=== PATIENT | male | born 1970 | race African-American/Black ===

== ENCOUNTER 2020-10-31 12:21 | Inpatient (IN) | payer MEDICARE ==
[~2020-10-31] VITALS: Ht 170.2 cm; Wt 68.0 kg
[2020-10-31 12:22] VITALS: BP 136/90
--- NOTE | 2020-10-31 13:32 | NUR ---
Called lab for blood draw due to IV not drawing back
[2020-10-31 14:26] LABS: ABSOLUTE NEUTROPHILS 11.2 thou/uL (1.4-8.2); BASOPHILS 0.3 % (0.0-2.0); HEMATOCRIT 56.1 % (42.0-52.0); HEMOGLOBIN 18.2 gm/dL (14.0-18.0); LYMPHOCYTES 6.4 % (24.0-44.0); MCH 30.3 pg (26.0-34.0); MCHC 32.4 g/dL (28.0-37.0); MCV 93.4 fL (80.0-100.0); MONOCYTES 11.2 % (1.0-8.0); POLYS 82.1 % (36.0-66.0); RBC 6.01 mil/uL (4.50-6.00); RDW 14.3 % (10.5-14.5); WBC 13.7 thou/uL (4.0-11.0)
[2020-10-31 14:35] LABS: CALCIUM 9.7 mg/dL (8.5-10.1); POTASSIUM 4.4 mmol/L (3.5-5.1)
[2020-10-31 14:36] LABS: URINE BILIRUBIN NEGATIVE (Negative); URINE BLOOD 3+ (Negative); URINE CLARITY CLEAR; URINE COLOR YELLOW; URINE GLUCOSE-RANDOM* NEGATIVE (Negative); URINE KETONES NEGATIVE (Negative); URINE NITRITE-REFLEX NEGATIVE (Negative); URINE PROTEIN (DIPSTICK) 1+ (Negative); URINE SPECIFIC GRAVITY 1.025 (1.005-1.035); URINE UROBILINOGEN 0.2 E.U./dl (0.2-1.0)
[2020-10-31 14:38] LABS: URINE LEUKOCYTES-REFLEX 1+ (Negative)
--- NOTE | 2020-10-31 14:42 | EKG ---
[place] [address] [facility] [place] [address] ELECTROCARDIOGRAM REPORT Name: RUDI COFFMAN Room #: REG OMID Townsend#: [id number] Admission: 10/31/20 Attend Phys: Discharge: Date of : 66 Report #: [id number] [facility] ED Test Date: 2020-10-31 Test Time: 14:15:58 Pat Name: RUDI COFFMAN Department: Room: Gender: M Room Service Bellhop: keren : 1970 Requested By: Messi Lopez Order Number: [id number] MD: Ajay Nelson Measurements Intervals [place] Rate: 115 P: 91 LA: 103 QRS: 62 QRSD: 77 T: -17 QT: 392 QTc: 543 Interpretive Statements Sinus tachycardia Biatrial enlargement Borderline low voltage, extremity leads Abnormal R-wave progression, late transition Prolonged QT interval No previous ECG available for comparison Electronically Signed On 10-31-2020 14:42:42 CDT by Ajay Nelson [email or web address] <ELECTRONICALLY SIGNED> By: Ajay Nelson MD, [facility] 10/31/20 1442 1415 1415 Ajay Nelson MD, FACC /EPI
[2020-10-31 14:43] LABS: ALBUMIN 3.4 g/dL (3.4-5.0); TOTAL BILIRUBIN 0.7 mg/dL (0.2-1.0); TOTAL PROTEIN 8.7 g/dL (6.4-8.2)
[2020-10-31 14:48] LABS: HYALINE CASTS 4-10 Moderate /LPF (None Seen); MUCUS 4-6 Moderate strn/LPF (None Seen); SQUAMOUS 0-3 Few /LPF (0-3)
[2020-10-31 14:50] LABS: CRYSTALS None Seen /LPF (None Seen); URINE RBC 3-10 Few /HPF (NONE SEEN); URINE WBC-REFLEX >25 Many /HPF (0-5); WBC CLUMPS Few (None Seen)
[2020-10-31 15:07] LABS: PLATELET COUNT 141 thou/uL (150-400)
--- NOTE | 2020-10-31 17:30 | NUR ---
50-year-old male past medical history of cerebral palsy presented to the ED for evaluation of multiple complaints including an episode of nausea and vomiting approximately 1 week ago, and since that time has been unable to have a bowel movement. Upon further evaluation found to be dehydrated with a UTI. Patient lists his step father Marcello Hampton where he resides at [phone] as his next of kin. CM will follow for discharge needs upon medical evaluation and plan of care has been established.
[2020-10-31 18:30] VITALS: BP 140/82
[2020-10-31 18:53] VITALS: BP 124/85
--- NOTE | 2020-11-01 04:26 | NUR ---
PATIENT ADMITTED FOR AMS, ABD PAIN AND CONSTIPATION AND POSSIBLE IMPACTION. PATIENT AOX4. PATIENT IS NOT ABLE TO EXPRESS NEEDS.PATIENT ENCOURAGED FLUIDS. PATIENT NEED ASSISTANCE X2 WITH ADL, BED MOBILITY, TRANSFER AND TOILETING. FALL PRECAUTION IN PLACE. PATIENT IN BED ASLEEP AT THIS TIME BREATHING REGULAR AND UNLABOURED.
[2020-11-01 05:36] LABS: MCH 30.3 pg (26.0-34.0); MCHC 32.1 g/dL (28.0-37.0); MCV 94.5 fL (80.0-100.0); RBC 4.97 mil/uL (4.50-6.00); RDW 14.1 % (10.5-14.5); WBC 10.8 thou/uL (4.0-11.0)
[2020-11-01 05:40] LABS: HEMOGLOBIN 15.1 gm/dL (14.0-18.0)
[2020-11-01 05:56] LABS: ALBUMIN 2.6 g/dL (3.4-5.0); CALCIUM 8.3 mg/dL (8.5-10.1); CREATININE 1.5 mg/dL (0.7-1.3); MAGNESIUM 2.9 mg/dL (1.8-2.4); POTASSIUM 4.4 mmol/L (3.5-5.1); TOTAL BILIRUBIN 0.7 mg/dL (0.2-1.0)
--- NOTE | 2020-11-01 13:43 | NUR ---
PT ADMITTED RELATED TO UTI AND DEHYDRATION. CM MET WITH PT AT BEDSIDE THIS DAY. PT APPEARED TO BE A&OX4. PT SPEAKS VERY SLOWLY. PT HAS CEREBRAL PALSY; INFORMATION GATHERED FROM PT AND CONFIRMED SOME DETAILS THROUGH CHART REVIEW. PT REPORTS LIVING IN A 2-STORY HOUSE WITH HIS FATHER/BROTHER. REPORTS CHAIRLIFT IS BROKEN, SO HAS BEEN SCOOTING UP STAIRS USING BUE, BEDROOM IS UPSTAIRS. PT STATES INDPT WITH TRANSFERS TO W/C. STATES INDPT W/ DRESSING, AND ABLE TO COMPLETE SPONGE BATH INDEPENDENTLY. FEEDS SELF INDEPENDENTLY, WITH MEAL PROV BY FAMILY. PT'S FAMILY COMPLETES HOME MAKING RESPONSIBILITIES. PT REPORTS NO ELECTRIC W/C, MANUAL SELF-PROPELLING W/C. STATES WAS DOING ALL OF THIS PREVIOUS TO "GETTING SICK" AND THROWING UP. UNSURE OF DATES EXACTLY WHEN PT LAST COMPLETING. CM CALLED PT'S STEP FATHER PAULINA HERNANDEZ AND LEFT VM.
--- NOTE | 2020-11-01 14:28 | NUR ---
Pt. is AXOX3. Alert has expressive aphasia along with CP. IV in right FA running NS at 100/hr. Skin is intact remains on room air. Negative for covid. Pt has blood in his urine. Waiting for father in law to come in to sign consent forms. Pt is a 1-2 person assist. No BM today. Bed in low position fall precautions in place. Call light is within reach. Will monitor until end of shift.
[2020-11-01 16:35] VITALS: BP 122/74
[2020-11-01 21:20] VITALS: BP 130/63
--- NOTE | 2020-11-02 03:33 | NUR ---
PT IS A/O X3 WITH SOME FOREGETFULLNESS. ROOM AIR. VSS AFEBRILE. CONTINUES ON ASPIRATION RISK PRECAUTIONS WITH THICKENED LIQUIDS, AND PUREED DIET. MEDICATIONS GIVEN PER MAR. DENIES C/O PAIN OR DISCOMFORT. IN ROOM NEAR NURSES STATION WITH FREQUENT CHECKS. REQUESTS FOR SNACKS OFTEN. IS PLEASANT AND COOPERATIVE. USES URINAL WITH ASSISTANCE AT THE BEDSIDE. IS INCONTINENT AT TIEMS. NO BM THIS SHIFT. FALL PRECAUTIONS IN PLACE, CALL LIGHT IS WITHIN REACH
[2020-11-02 07:26] VITALS: BP 105/64
--- NOTE | 2020-11-02 15:58 | NUR ---
Called father to get ID to confirm true name of the pt, spoke to a borther who was coming in from out of town to visit. Brother came in with pts certificate, made a copy. True name is Alea Leos. ST,OT,PT eval on going d/t complaints of pain as reported by nursing staff. Pt is alert x2. on going IV abx. Will follow for DC needs.
[2020-11-02 16:41] VITALS: BP 124/80
--- NOTE | 2020-11-02 17:22 | NUR ---
PT IS A&O*2, FORGERTFULLNESS, ROOM AIR, PAIN REPORT WHILE SWALLOWING. PT IS ON PUREED DIET WITH NECTAR THICK. SPEECHY EVALUATION REQUEST TODAY AND NO FUTHER GI CONSULT NEEEDED AT THIS TIME. NOTIFIED. PT FAMILY CONCERNS ABOUT CONSTIPATION AND DM FAMILY HISTORY. ORDERED COLACE BID AND SUPPOTITORY PRN DAILY, HA1C LAB CHECK PER FAMILY REQUEST. PT WORKED WITH OT. IV ABX GIVEN PER ORDER. SINUS TACHY SHOWING ON MONITOR HR BETWEEN 90-100. WILL KEEP MONITOR PATINET'S SAFETY.
[2020-11-02 21:45] VITALS: BP 122/66
[2020-11-02 23:39] VITALS: BP 122/66
--- NOTE | 2020-11-03 02:42 | NUR ---
PT CARE ASSUMED AT 1900 WITH PT IN BED WATCHING TV AND HAVING SNACK.PT IS A/O X2.PT IS UP WITH X2 ASSIST.PT IS ON PUREED DIET AND NECTAR THICKEN LIQUID AND FEEDS SELF.PT IS INCONTINENT.WILL CONTINUE TO MONITOR
[2020-11-03 07:15] VITALS: BP 95/64
[2020-11-03 08:16] LABS: ABSOLUTE NEUTROPHILS 6.8 thou/uL (1.4-8.2); BASOPHILS 1.3 % (0.0-2.0); EOSINOPHILS 1.8 % (0.0-3.0); HEMATOCRIT 40.2 % (42.0-52.0); LYMPHOCYTES 14.8 % (24.0-44.0); MCH 30.4 pg (26.0-34.0); MCHC 32.2 g/dL (28.0-37.0); MCV 94.6 fL (80.0-100.0); MONOCYTES 10.4 % (1.0-8.0); PLATELET COUNT 145 thou/uL (150-400); POLYS 71.7 % (36.0-66.0); RBC 4.25 mil/uL (4.50-6.00); WBC 9.5 thou/uL (4.0-11.0)
[2020-11-03 08:29] LABS: ALBUMIN 2.2 g/dL (3.4-5.0); CALCIUM 7.9 mg/dL (8.5-10.1); MAGNESIUM 2.3 mg/dL (1.8-2.4); POTASSIUM 4.4 mmol/L (3.5-5.1); TOTAL BILIRUBIN 0.3 mg/dL (0.2-1.0); TOTAL PROTEIN 5.7 g/dL (6.4-8.2)
[2020-11-03 08:37] LABS: HEMOGLOBIN 12.9 gm/dL (14.0-18.0)
--- NOTE | 2020-11-03 12:17 | NUR ---
FAXED REFERRAL AND NEGATIVE COVID RESULT (10/31/20) TO [facility]. WILL CONFIRM WITH TUNDE/LIAISON THAT THEY RECEIVED AND AVAILABILITY. [facility] P [phone]; FAX [phone]; M [phone]
--- NOTE | 2020-11-03 13:59 | NUR ---
Spoke with father of the pt Marcello Hampton [phone] pt has not had home health in the past and is open now if needed. PCP is Dr. Erin Molina [phone], [facility] has accepted his case. informed, awaiting dc.
[2020-11-03] MEDS ORDERED: PROTONIX 20 MG20 MG PO (14:14)
[2020-11-03] MEDS ORDERED: CEPHALEXIN500 MG PO (14:15)
[2020-11-03] MEDS ORDERED: ENSURE CLEAR PO (14:22)
[2020-11-03] MEDS ORDERED: SUPER THERAVIT1 EACH PO (14:22)
[2020-11-03 14:38] VITALS: BP 102/60
[2020-11-03 15:04] VITALS: BP 102/60
--- NOTE | 2020-11-03 16:39 | NUR ---
ASSUMED CARE OF PATIENT AT SHIFT CHANGE. ASSESSMENT CHARTED. MEDICATIONS ADMINISTERED PER EMAR. VITAKS REMAIN STABLE. PATIENT IS A&OX3 W SLURRED SPEECH/STUTTERING RELATED TO CP. PATIENT DENIES PAIN THIS SHIFT. PATIENT CALLS OUT WHEN NEEDING TO GO TO BATHROOM; NOT IMPULSIVE AND COMPLIANT WITH FALL PRECAUTIONS. PATIENT WAS MEDICALLY CLEARED TO DISCHARGE HOME THIS DAY. PATIENT CAREGIVER WAS UPDATED ANDD WILL BE CALLED IN REGARDS TO DISCHARGE INSTRUCTIONS. PATIENT VOICED NO FURTHER NEEDS. WILL CONTINUE TO MONITOR UNTIL DISHCHARGE
[2020-11-04 01:06] LABS: GLYCOHEMOGLOBIN (HGB A1C) 5.7 % (4.8-5.6)
--- NOTE | 2020-11-04 14:52 | NUR ---
NUMBER CM PROVIDED WAS [employer]; NO FAMILY MEMBER OF PATIENT WORKS THERE. CALLED NUMBER ON CHART X3; UNABLE TO LEAVE VOICEMAIL, CONTINUOUS RINGING. LEFT DISCHARGE INFO IN FOLDER SENT WITH PATIENT AND INFORMED TRANSPRT
== END 2020-11-03 17:12 | disposition home health service (06) | DRG 871 ==
LOC: ER 12:21 → 4W 16:37 → EROBS 16:37 → 4W 19:37
PROVIDERS: Emergency Medicine; Internal Medicine; Student in an Organized Health Care Education/Training Program; ADMIT Internal Medicine; ATTEND Internal Medicine
DX: A41.9 Sepsis, unspecified organism (principal); N17.0 Acute kidney failure with tubular necrosis; G92 Toxic encephalopathy; E43 Unspecified severe protein-calorie malnutrition; N39.0 Urinary tract infection, site not specified; E86.0 Dehydration; N20.0 Calculus of kidney; G80.9 Cerebral palsy, unspecified; Z20.822 Contact with and (suspected) exposure to COVID-19; D75.1 Secondary polycythemia; D69.6 Thrombocytopenia, unspecified; Z68.23 Body mass index [BMI] 23.0-23.9, adult; Z79.899 Other long term (current) drug therapy
CPT/HCPCS: 10045

== ENCOUNTER 2020-11-04 14:31 | Inpatient (IN) | payer MEDICARE ==
[~2020-11-04] VITALS: Ht 170.2 cm; Wt 68.0 kg
[~2020-11-04 14:31] MED LIST: CEPHALEXIN500 MG PO; ENSURE CLEAR PO; PROTONIX 20 MG20 MG PO; SUPER THERAVIT1 EACH PO
[2020-11-04 14:34] VITALS: BP 109/66
[2020-11-04 15:52] LABS: ABSOLUTE NEUTROPHILS 8.1 thou/uL (1.4-8.2); BASOPHILS 0.4 % (0.0-2.0); EOSINOPHILS 0.8 % (0.0-3.0); HEMATOCRIT 42.5 % (42.0-52.0); LYMPHOCYTES 11.6 % (24.0-44.0); MCH 30.5 pg (26.0-34.0); MCHC 32.9 g/dL (28.0-37.0); MCV 92.9 fL (80.0-100.0); MONOCYTES 7.9 % (1.0-8.0); POLYS 79.3 % (36.0-66.0); RBC 4.57 mil/uL (4.50-6.00); RDW 13.8 % (10.5-14.5); WBC 10.2 thou/uL (4.0-11.0)
[2020-11-04 15:57] LABS: PLATELET COUNT 253 thou/uL (150-400)
[2020-11-04 16:02] LABS: CALCIUM 8.9 mg/dL (8.5-10.1); CREATININE 1.1 mg/dL (0.7-1.3); POTASSIUM 4.3 mmol/L (3.5-5.1)
[2020-11-04 16:09] LABS: ALBUMIN 2.6 g/dL (3.4-5.0); TOTAL BILIRUBIN 0.5 mg/dL (0.2-1.0); TOTAL PROTEIN 7.2 g/dL (6.4-8.2)
[2020-11-04 16:20] LABS: APTT 26.2 Seconds (24.5-32.8); INR 0.96; PROTIME 10.5 Seconds (10.5-12.1)
[2020-11-04 21:15] VITALS: BP 105/60
[2020-11-04 22:04] VITALS: BP 114/63
[2020-11-04 22:30] VITALS: BP 105/66
[2020-11-05 01:14] LABS: HEMATOCRIT 40.1 % (42.0-52.0); HEMOGLOBIN 13.2 gm/dL (14.0-18.0); MCH 30.4 pg (26.0-34.0); MCHC 32.9 g/dL (28.0-37.0); MCV 92.6 fL (80.0-100.0); RBC 4.33 mil/uL (4.50-6.00); RDW 13.6 % (10.5-14.5); WBC 8.7 thou/uL (4.0-11.0)
[2020-11-05 01:31] LABS: INR 1.02; PROTIME 11.1 Seconds (10.5-12.1)
[2020-11-05 08:24] VITALS: BP 95/57
[2020-11-05 09:07] LABS: URINE BILIRUBIN NEGATIVE (Negative); URINE BLOOD 1+ (Negative); URINE CLARITY CLEAR; URINE COLOR YELLOW; URINE GLUCOSE-RANDOM* NEGATIVE (Negative); URINE KETONES TRACE (Negative); URINE LEUKOCYTES-REFLEX NEGATIVE (Negative); URINE NITRITE-REFLEX NEGATIVE (Negative); URINE PROTEIN (DIPSTICK) NEGATIVE (Negative); URINE SPECIFIC GRAVITY >= 1.030 (1.005-1.035); URINE UROBILINOGEN 0.2 E.U./dl (0.2-1.0)
[2020-11-05 09:24] LABS: CASTS None Seen /LPF (None Seen); MUCUS >6 Heavy strn/LPF (None Seen); SQUAMOUS 0-3 Few /LPF (0-3)
[2020-11-05 09:25] LABS: BACTERIA-REFLEX 1-9 Few /HPF (None Seen); CRYSTALS None Seen /LPF (None Seen); URINE RBC 1-2 Rare /HPF (NONE SEEN); URINE WBC-REFLEX 0-5 Rare /HPF (0-5)
[2020-11-05 16:52] VITALS: BP 95/60
--- NOTE | 2020-11-05 16:59 | NUR ---
PT IS A&O*1, ROOM AIR, MAX ASSISTANCE TO TURN Q2. LEFT LEG EDEMA +2, REPORT PAIN ON LEFT LEG. LOW BP, ONE DOSE BOLUS GIVEN IN THE MORNING. PAGED FOR FURTHER INTERVENTION AFTER VS GET IN THE AFTERNOON, STILL LOW BP. PT NEEDS TOTAL CARE AND BE FED FOR MEALS. SHOWING SINUS RHYTHM ON THE TELE. BED ALARM IS ON AND CLOSE TO NURSING STATION. PUREER FOOD AND CRUSHED MED. LAB CALLED FOR CHECKING APPT AND CHANGE HEPARIN PER ORDER. WILL KEEP MONITOR PT'S SAFETY.
[2020-11-05 20:13] VITALS: BP 111/61
--- NOTE | 2020-11-06 03:06 | NUR ---
PT CARE ASSUMED WITH PT IN BED AT 1900.PT IS A/O X3.PT IS ON BEDREST AND X2 ASSIST.PT IS INCONTINENT AND ALSO USE A URINAL.PT IS ON TELE SR.PT C/O PAIN AND PAIN MANAGED WITH TYLENOL ARTHRITIS.PT IN HEPARIN DRIP AND ADJUSTED PER PROTOCOL USING APTT LAB.PT IS ON ROOM AIR.WILL CONTINUE TO MONITOR
[2020-11-06 07:07] LABS: CALCIUM 7.7 mg/dL (8.5-10.1); CREATININE 0.9 mg/dL (0.7-1.3); PHOSPHORUS 2.5 mg/dL (2.6-4.7); POTASSIUM 4.1 mmol/L (3.5-5.1)
[2020-11-06 07:37] VITALS: BP 97/54
--- NOTE | 2020-11-06 15:41 | NUR ---
PT ADMITTED RELATED TO DVT. PT HAD DISCHARGED HOME Friday11/03/20 HOME WITH STEP FATHER, BROTHER, AND [facility]. PT HAD PREVIOUSLY BEEN ADMITTED RELATED TO UTI AND DEHYDRATION. CM MET WITH PT AT BEDSIDE THIS DAY. PT APPEARED TO BE A&OX4. PT SPEAKS VERY SLOWLY. PT HAS CEREBRAL PALSY; INFORMATION GATHERED FROM PT AND CONFIRMED SOME DETAILS THROUGH CHART REVIEW. PT REPORTS LIVING IN A 2-STORY HOUSE WITH HIS FATHER/BROTHER. REPORTS CHAIRLIFT IS BROKEN, SO HAS BEEN SCOOTING UP STAIRS USING BUE, BEDROOM IS UPSTAIRS. PT STATES INDPT WITH TRANSFERS TO W/C. STATES INDPT W/ DRESSING, AND ABLE TO COMPLETE SPONGE BATH INDEPENDENTLY. FEEDS SELF INDEPENDENTLY, WITH MEAL PROV BY FAMILY. PT'S FAMILY COMPLETES HOME MAKING RESPONSIBILITIES. PT REPORTS NO ELECTRIC W/C, MANUAL SELF-PROPELLING W/C. CM CALLED PT'S STEP FATHER PAULINA HERNANDEZ AND HE CONFIRMED ALL THE ABOVE. PLAN IS FOR PT TO GET ON A BLOOD THINNER AND POSSIBLE DC HOME TOMORROW WITH RESUMPTION OF HH SERVICES. CM TO FOLLOW INDICATED WITH DC PLANNING.
[2020-11-06 16:35] VITALS: BP 103/59
[2020-11-06 19:54] VITALS: BP 100/61
--- NOTE | 2020-11-06 20:09 | NUR ---
Assumed pt care this am, on a heparin drip monitored and adjusted as documented. Pt is a feeder, low oral intake is noted, consumes supplements more than meal. Uses the urinal with assistance. Swelling on lower extremity noted. POC followed, with no signs or verbalizations of distress noted. Pt stayed on the bed for most of the day, turned when allowed. Endorsed to the night nurse.
[2020-11-07 01:56] LABS: ABSOLUTE NEUTROPHILS 4.8 thou/uL (1.4-8.2); BASOPHILS 1.1 % (0.0-2.0); EOSINOPHILS 2.6 % (0.0-3.0); HEMATOCRIT 34.3 % (42.0-52.0); HEMOGLOBIN 11.4 gm/dL (14.0-18.0); LYMPHOCYTES 19.3 % (24.0-44.0); MCH 30.3 pg (26.0-34.0); MCHC 33.3 g/dL (28.0-37.0); MCV 91.1 fL (80.0-100.0); MONOCYTES 9.8 % (1.0-8.0); POLYS 67.2 % (36.0-66.0); RBC 3.77 mil/uL (4.50-6.00); RDW 13.6 % (10.5-14.5); WBC 7.2 thou/uL (4.0-11.0)
[2020-11-07 02:01] LABS: PLATELET COUNT 345 thou/uL (150-400)
[2020-11-07 02:06] LABS: ALBUMIN 1.8 g/dL (3.4-5.0); CALCIUM 7.9 mg/dL (8.5-10.1); CREATININE 0.8 mg/dL (0.7-1.3); MAGNESIUM 1.9 mg/dL (1.8-2.4); PHOSPHORUS 2.6 mg/dL (2.6-4.7); TOTAL BILIRUBIN 0.2 mg/dL (0.2-1.0); TOTAL PROTEIN 5.8 g/dL (6.4-8.2)
--- NOTE | 2020-11-07 05:27 | NUR ---
PT SLEPT MOST OF THE NIGHT. RESPIRATIONS EVEN AND UNLABORED. HE DENIED ANY PAIN. C/O NAUSEA EARLIER IN THE NIGHT. HEPARIN GTT INFUSING PER DVT PROTOCOL. Q2H TURN TO PREVENT SKIN BREAKDOWN. INCONTINENT OF URINE. FALL PRECAUTIONS IN PLACE. PROGRESSING SLOWLY TOWARD POC GOALS. WILL MONITOR FURTHER.
[2020-11-07 07:13] VITALS: BP 102/59
--- NOTE | 2020-11-07 16:28 | NUR ---
CARE TEAM INDICATED THAT PT IS PROGRESSING TOWARD GOAL OD DC HOME. ANTICIPATE PT HAVING A COUPLE MORE DAYS OF IV ABX. CM FOLLOWING REGARDING DC PLANNING.
[2020-11-07 16:33] VITALS: BP 105/65
[2020-11-07 16:37] LABS: HEMATOCRIT 35.2 % (42.0-52.0); HEMOGLOBIN 11.7 gm/dL (14.0-18.0); MCH 30.7 pg (26.0-34.0); MCHC 33.3 g/dL (28.0-37.0); MCV 92.2 fL (80.0-100.0); RBC 3.82 mil/uL (4.50-6.00); RDW 13.6 % (10.5-14.5); WBC 5.9 thou/uL (4.0-11.0)
--- NOTE | 2020-11-07 17:18 | NUR ---
PT IS A&O*2, ROOM AIR, LEG LEG AND FOOT IS SWOLLEN DUE TO DVT, Q2 TURN. NSR ON TELE. REPORT PAIN AND STOMACH ACHING, ONE DOSE TYLENOL AND ONE DOSE IV ZOFRAN GIVEN AND SAID PARTIAL RELIEFED. BED BATH GIVEN. PT IS INCOTINENT AND COULD BE HELPED TO USE URINAL IN THE BED. HEPARING DRIP RATE HAS BEEN MODIFIED PER ORDER. NEXT aPTT IS SCHEDULE ON 8/4 AM. PT IS ON BED ALARM AND CLOSE TO NURSING STATION. WILL KEEP MONITOR PATINT'S SAFETY.
[2020-11-07 19:23] VITALS: BP 123/68
--- NOTE | 2020-11-08 03:27 | NUR ---
[facility] PT CARE AT 1915. PT IS ALERT AND ORIENTEDX2. PT HAS SWOLLEN FORM THE L THIGH TO THE FOOT. PT HAS SCAR ON THE L SIDE. PT PREERS TO SLEEP ON THE R SIDE. PT C/O PAIN TO THE L SIDE WHICH WAS WELL MANAGED BY PRN PAIN MEDS. PT DID NOT C/O NAUSEA. PT DOES NOT USE CALL LIGHT BUT ONLY VOICE OUT NEEDS ON HOURLY ROUNDS. FALL PRECAUTIONS IN PLACE WITH CALL LIGHT WITHIN REACH WILL CONTINUE TO MONITOR.
[2020-11-08 10:10] VITALS: BP 100/56
[2020-11-08] MEDS ORDERED: HYDROCODON-ACE1 EAC7 PO (11:02)
[2020-11-08] MEDS ORDERED: PANCREAZE DR 11 EAC2 PO (11:02)
[2020-11-08] MEDS ORDERED: ELIQUIS5 MG PO (11:02)
--- NOTE | 2020-11-08 11:21 | NUR ---
PT IS A&O*2, ROOM AIR, WORKED WITH PT AND OT TODAY AND SIT UP TO CHAIR ONCE. REPORT MILD PAIN ON LEFT LEG. NSR ON TELE. aPTT WAS IN THERAPUTIC RANGE IN THE MORNING AND D/C HEAPRIN DRIP PER ORDER. WILL KEEP MONITOR PATIENT SAFETY UNTIL D/C TODAY.
[2020-11-08 11:23] VITALS: BP 100/56
[2020-11-08 11:24] VITALS: BP 100/56
--- NOTE | 2020-11-08 12:09 | NUR ---
CARE TEAM INDICATED THAT PT IS MEDICALLY STABLE TO DC HOME THIS DAY. CM NOTIFIED PT AND CALLED HIS STEP FATHER PAULINA. THEY ARE AWARE AND AGREEABLE. CM FAXED CLINICAL AND ORDERS TO [facility] TO RESUME SERVICES WITH PT UPON DC. CM TO PROVIDE PT WITH ELIQUIS DISCOUNT CARD. CM SET UP WC VAN TRANSPORT THROUGH [facility] FOR [phone] PICKUP. NURSE WENT OVER DC PAPERWORK WITH PT AND STEP FATHER. NO OTHER CM INTERVENTION INDICATED. CASE CLOSED.
== END 2020-11-08 14:13 | disposition home health service (06) | DRG 299 ==
LOC: ER 14:31 → 4W 17:24 → EROBS 17:24 → 4W 22:05
PROVIDERS: Emergency Medicine; ADMIT Internal Medicine; ATTEND Internal Medicine
DX: I82.412 Acute embolism and thrombosis of left femoral vein (principal); E43 Unspecified severe protein-calorie malnutrition; L03.116 Cellulitis of left lower limb; I82.422 Acute embolism and thrombosis of left iliac vein; Z20.822 Contact with and (suspected) exposure to COVID-19; I82.432 Acute embolism and thrombosis of left popliteal vein; I82.442 Acute embolism and thrombosis of left tibial vein; S93.602A Unspecified sprain of left foot, initial encounter; M24.572 Contracture, left ankle; Z82.49 Family history of ischemic heart disease and other diseases of the circulatory system; Z80.41 Family history of malignant neoplasm of ovary; Z68.23 Body mass index [BMI] 23.0-23.9, adult; Z99.3 Dependence on wheelchair; W18.39XA Other fall on same level, initial encounter; Y93.89 Activity, other specified; Y92.098 Other place in other non-institutional residence as the place of occurrence of the external cause; Y99.8 Other external cause status
CPT/HCPCS: 10040; 10045